=== PATIENT | female | born 1985 | race American Indian/Alaskan Native ===

== ENCOUNTER 2023-10-13 10:55 | Emergency (ER) | payer MEDICAID, SELFPAY ==
[2023-10-13 11:03] VITALS: BP 123/80; PULSE 108; RESP 14; TEMP 37.2; O2SAT 96; BMI 37.8
--- NOTE | 2023-10-13 11:31 | ED.GENADULT ---
HPI - General Adult General Date Seen: 10/13/23 Chief complaint: Sore Throat Stated complaint: strep-kids have it Time Seen by Provider: 10/13/23 11:03 Source: patient and RN notes reviewed Mode of arrival: ambulatory Limitations: no limitations History of Present Illness HPI narrative: Patient is a 38-year-old woman who has kids have been sick recently with strep, influenza and pneumonia. She had sore throat since yesterday and noted pus on her tonsils today. No fevers. She has had ear pain, headache, body aches. Minimal cough. General health is good. She has a 4-month-old who she is nursing. Related Data Home Medications Medication Instructions Recorded Confirmed bupropion HCl 75 mg tablet 75 mg PO DAILY PRN 10/13/23 10/13/23 gabapentin 100 mg capsule 100 mg PO DAILY 10/13/23 10/13/23 venlafaxine 37.5 mg 37.5 mg PO DAILY 10/13/23 10/13/23 capsule,extended release 24 hr zolpidem 10 mg tablet (Ambien) 10 mg PO QHS 10/13/23 10/13/23 Previous Rx's Medication Instructions Recorded amoxicillin 500 mg tablet 1,000 mg (2 x 500 mg) PO DAILY #20 10/13/23 tabs Allergies Allergy/AdvReac Type Severity Reaction Status Date / Time No Known Drug Allergies Allergy Verified 10/13/23 10:59 Review of Systems Status of ROS: Reports: 6 or more systems reviewed and unremarkable except as noted in History and below PFSH PFSH Social History Smoking Status: Never smoker Do you use any of these nicotine containing products: None How often do you have a drink containing alcohol: never AUDIT-C Alcohol total score: 0 Non-prescribed substance use: denies use Exam Narrative: Exam Narrative: Vital signs as noted above. In general, an alert, well-appearing patient. Voice is normal. Head: Normocephalic, atraumatic. Eyes: Pupils are equal reactive. Extraocular movements are full. Conjunctivae are normal. ENT: Mucous membranes are moist. No trismus. Bilateral oral exudate of tonsils, no significant edema, mild erythema. TMs normal bilaterally. Neck: Supple without lymphadenopathy. No stridor. Heart: Mild tachycardia, regular. Lungs: Clear bilaterally. No increased work of breathing, crackles or wheezes. Neurologic: Patient is alert and oriented to person and place. Speech is fluent. Face is symmetric. Moves all extremities equally. Affect: Normal. Skin: Warm and dry. Well perfused. Const: Vital Signs, click to edit/add: Vital Signs - 24 hr 10/13/23 11:03 10/13/23 11:41 Temperature 98.9 F 98.9 F Pulse Rate [Pulse Oximeter] 108 H 108 H Respiratory Rate 14 14 Blood Pressure [Ri ght Upper Arm] 123/80 123/80 Pulse Oximetry 96 Oxygen Delivery Me thod Room Air Documenting provider has reviewed patient's vital signs: yes Course Course ED Course: Swabs for strep, influenza and COVID are pending. Will await results of those given that she has been exposed to another different things recently. Also discussed relatively unlikely the possibility of mono. Ibuprofen and/or Tylenol as needed for sore throat, maintain hydration. No evidence of abscess at this time. Reviewed reasons to return. Rapid strep positive, viral swab negative. Prescribed amoxicillin. Vital Signs Vital signs: Initial Vital Signs Temperature 98.9 F 10/13/23 11:03 Temperature Source Temporal Artery Scan 10/13/23 11:03 Pulse Rate 108 H 10/13/23 11:03 Pulse Rhythm Regular 10/13/23 11:03 Respiratory Rate 14 10/13/23 11:03 Blood Pressure 123/80 10/13/23 11:03 Blood Pressure Mean 94 10/13/23 11:03 Blood Pressure Position Sitting 10/13/23 11:03 Pulse Oximetry 96 10/13/23 11:03 Oxygen Delivery Method Room Air 10/13/23 11:03 Vital Signs Temperature 98.9 F 10/13/23 11:03 Pulse Rate 108 H 10/13/23 11:03 Respiratory Rate 14 10/13/23 11:03 Blood Pressure 123/80 10/13/23 11:03 Pulse Oximetry 96 10/13/23 11:03 Oxygen Delivery Method Room Air 10/13/23 11:03 Temperature 98.9 F 10/13/23 11:41 Pulse Rate 108 H 10/13/23 11:41 Respiratory Rate 14 10/13/23 11:41 Blood Pressure 123/80 10/13/23 11:41 Pulse Oximetry 96 10/13/23 11:03 Oxygen Delivery Method Room Air 10/13/23 11:03 Medical Decision Making Lab Data Labs: Lab Results 10/13/23 Range/Units 11:07 SARS-CoV-2 (PCR) Negative SARS-CoV-2 (Negative) Influenza Type A (PCR) Negative PCR FLU A (Negative) Influenza Type B (PCR) Negative PCR FLU B (Negative) RSV (PCR) Negative PCR RSV (Negative) Group A Strep DNA DETECTED A (Not Detectd) Discharge Plan Discharge Clinical Impression: Acute tonsillitis, Strep throat Patient Disposition: Home, Self-Care Condition: Stable Instructions: Tonsillitis (ED) Additional Instructions: Ibuprofen 400 mg plus Tylenol 1000 mg 3 times daily as needed for the next few days. We will see how swabs look and treat based on that. Will call you with the results. If you have worsening or severe pain, are unable to swallow saliva or liquids, return for re-evaluation Prescriptions: New amoxicillin 500 mg tablet 1,000 mg PO DAILY Qty: 20 0RF No Action gabapentin 100 mg capsule 100 mg PO DAILY venlafaxine 37.5 mg capsule,extended release 24hr 37.5 mg PO DAILY zolpidem [Ambien] 10 mg tablet 10 mg PO QHS bupropion HCl 75 mg tablet 75 mg PO DAILY PRN Stand Alone Forms: [facility] Info Instructions Discharge Comment: Pt was called and notified of positive strep result and rx Amoxicillin sent electronically to pharmacy.
[2023-10-13 11:40] LABS: Strep A DNA Probe* DETECTED (Not Detectd)
[2023-10-13 11:41] VITALS: BP 123/80; PULSE 108; RESP 14; TEMP 37.2
[2023-10-13 11:58] LABS: PCR FLU A Negative PCR FLU A (Negative); PCR FLU B Negative PCR FLU B (Negative); PCR RSV Negative PCR RSV (Negative); SARS PCR* Negative SARS-CoV-2 (Negative)
== END 2023-10-13 11:40 | disposition home or self-care (01) ==
LOC: ED 11:39
PROVIDERS: Emergency Provider Emergency Medicine
DX: J02.0 Streptococcal pharyngitis (principal)
CPT/HCPCS: 87631; 87651; 99283

== ENCOUNTER 2023-10-30 08:54 | Emergency (ER) | payer MEDICAID, SELFPAY ==
[2023-10-30 09:02] VITALS: BP 113/89; PULSE 100; RESP 16; TEMP 36.5; O2SAT 96; BMI 37.8
--- NOTE | 2023-10-30 09:45 | ED_ITS ---
HPI - General Adult General Date Seen: 10/30/23 Chief complaint: Ear/Nose/Throat Problem Stated complaint: strep throat Time Seen by Provider: 10/30/23 09:01 Source: patient Mode of arrival: ambulatory Limitations: no limitations History of Present Illness HPI narrative: pt had strep throat a couple weeks ago, it went through her house. yesterday started getting sore throat again, worse today. concerned she has strep again Patient is seen, for pharyngitis, she has had this now for 3-4 days notices the left-sided posterior side of her neck is also little sore, she says she commonly gets lymph node swelling when she is sick ever since she has been young. She has had no fevers or chills, she is able to swallow, no history of tonsillectomy, but was positive for strep but there is a part of October. And was seen here. Has small children at home, no nausea vomiting diarrhea, little bit of a cough and does tell me she is a smoker. Denies any significant shortness of breath, moving around any sort of cough or sputum production no chest pain, no abdominal pain no dysuria frequency. Not use daily significant any other symptomatic medication Related Data Home Medications Medication Instructions Recorded Confirmed bupropion HCl 75 mg tablet 75 mg PO DAILY PRN 10/13/23 10/13/23 gabapentin 100 mg capsule 100 mg PO DAILY 10/13/23 10/13/23 venlafaxine 37.5 mg 37.5 mg PO DAILY 10/13/23 10/13/23 capsule,extended release 24 hr zolpidem 10 mg tablet (Ambien) 10 mg PO QHS 10/13/23 10/13/23 Previous Rx's Medication Instructions Recorded amoxicillin 500 mg tablet 1,000 mg (2 x 500 mg) PO DAILY #20 10/13/23 tabs Allergies Allergy/AdvReac Type Severity Reaction Status Date / Time No Known Drug Allergies Allergy Verified 10/13/23 10:59 Review of Systems Status of ROS: Reports: 10 or more systems reviewed and unremarkable except as noted in History and below [facility] PFS Social History Smoking Status: Current every day smoker Do you use any of these nicotine containing products: None How often do you have a drink containing alcohol: never AUDIT-C Alcohol total score: 0 Non-prescribed substance use: denies use Exam Narrative: Exam Narrative: Patient is seen in room 4 she is in no apparent distress she is speaking to me normally, with a normal voice. Her pupils are equal round reactive to light, her TMs bilaterally are normal. Her oropharynx is a little bit reddened, there is no tonsillar swelling or asymmetry noted, her uvula is normal, sinus is more tender on the left than the right. Neck is supple absence of meningismus is noted, she has some mild lymph node swelling notable no posterior chain on the left, no pointing, redness noted with this and there is nothing within her hair, to account for the reason for this. Chest is good air entry bilaterally with occasional wheezes otherwise normal, no crackles are noted, no signs respiratory distress or heart sounds are normal. Skin reveals no petechiae rashes. Const: Vital Signs, click to edit/add: Vital Signs - 24 hr 10/30/23 09:02 Temperature 97.7 F Pulse Rate [Pulse Oximeter] 100 Respiratory Rate 16 Blood Pressure [Le ft Upper Arm] 113/89 Pulse Oximetry 96 Oxygen Delivery Me thod Room Air Documenting provider has reviewed patient's vital signs: yes Course Course ED Course: I discussed with her, that we will do swabs for both the strep and the also the viral component, she does have some signs of sinusitis, offered a prescription for amoxicillin which she said she would take. I went over the risks benefits and side effects of this. Symptomatic measures also. Vital Signs Vital signs: Initial Vital Signs Temperature 97.7 F 10/30/23 09:02 Temperature Source Temporal Artery Scan 10/30/23 09:02 Pulse Rate 100 10/30/23 09:02 Respiratory Rate 16 10/30/23 09:02 Blood Pressure 113/89 10/30/23 09:02 Blood Pressure Mean 97 10/30/23 09:02 Blood Pressure Position Supine 10/30/23 09:02 Pulse Oximetry 96 10/30/23 09:02 Oxygen Delivery Method Room Air 10/30/23 09:02 Vital Signs Temperature 97.7 F 10/30/23 09:02 Pulse Rate 100 10/30/23 09:02 Respiratory Rate 16 10/30/23 09:02 Blood Pressure 113/89 10/30/23 09:02 Pulse Oximetry 96 10/30/23 09:02 Oxygen Delivery Method Room Air 10/30/23 09:02 Temperature 97.7 F 10/30/23 09:02 Pulse Rate 100 10/30/23 09:02 Respiratory Rate 16 10/30/23 09:02 Blood Pressure 113/89 10/30/23 09:02 Pulse Oximetry 96 10/30/23 09:02 Oxygen Delivery Method Room Air 10/30/23 09:02 Medical Decision Making MDM Narrative Medical decision making narrative: During this evaluation I considered multiple diagnosis, such as pharyngitis from viral sore strep throat peritonsillar abscess retropharyngeal abscess epiglottitis, lymphadenopathy lymphangitis, meningitis or other issues. Discharge Plan Discharge Clinical Impression: Pharyngitis, Sinusitis, History of strep pharyngitis, Tobacco use disorder Patient Disposition: Home w/ Parent or Adult Condition: Stable Instructions: Pharyngitis (ED), Sinusitis (ED) Additional Instructions: Home rest, we will call you if the swabs are positive, given you a prescription for amoxicillin, this will help the sinus issue. Use of Tylenol and other medications for symptomatic uses also encouraged. Obviously smoking cessation is also suggested. Follow-up as needed. Activity Level: Light activity Prescriptions: No Action gabapentin 100 mg capsule 100 mg PO DAILY venlafaxine 37.5 mg capsule,extended release 24hr 37.5 mg PO DAILY zolpidem [Ambien] 10 mg tablet 10 mg PO QHS bupropion HCl 75 mg tablet 75 mg PO DAILY PRN amoxicillin 500 mg tablet 1,000 mg PO DAILY Qty: 20 0RF Follow Up/Referrals: Provider,Not a Local [Referring] - Stand Alone Forms: [facility] Info Instructions
[2023-10-30 09:48] VITALS: BP 113/89; PULSE 100; RESP 16; TEMP 36.5
[2023-10-30 10:14] LABS: Strep A DNA Probe* DETECTED (Not Detectd)
[2023-10-30 10:26] LABS: PCR FLU A Negative PCR FLU A (Negative); PCR FLU B Negative PCR FLU B (Negative); PCR RSV Negative PCR RSV (Negative); SARS PCR* Negative SARS-CoV-2 (Negative)
== END 2023-10-30 09:49 | disposition home or self-care (01) ==
LOC: ED 09:35
PROVIDERS: Emergency Provider Family Medicine; PCP Family Medicine
DX: J02.0 Streptococcal pharyngitis (principal); J32.9 Chronic sinusitis, unspecified; F17.200 Nicotine dependence, unspecified, uncomplicated
CPT/HCPCS: 87631; 87651; 99283